=== PATIENT | female | born 1935 | race Two or more races ===

== ENCOUNTER → 2016-08-19 | Outpatient (CLI) | payer MEDICARE, OTHER | END | disposition home or self-care (01) | LOC: HKI 10:54 | PROVIDERS: ATTEND Orthopaedic Surgery | DX: M17.11 Unilateral primary osteoarthritis, right knee (principal) ==

== ENCOUNTER → 2016-09-21 | Outpatient (CLI) | payer MEDICARE, OTHER ==
--- NOTE | 2016-09-21 14:05 | RADRPT ---
PROCEDURE: XR leg length CLINICAL INDICATION: Right knee pain TECHNIQUE: Single AP image of the lower extremities. COMPARISON: Radiographs of the right knee dated January 27, 2016 FINDINGS: Single frontal image of the lower extremities from the iliac crest through the mid tibial shafts dem onstrates no acute fracture. There is severe medial femorotibial compartment osteoarthrosis on the right with mild genu varus and mild to moderate medial femorotibial compartment on the left. The soft tissues appear grossly unremarkable. There is apparent slight upward left pelvic tilt. IMPRESSION: 1. No radiographic evidence of acute osseous abnormality on this single image. 2. Severe right medial femorotibial compartment osteoarthrosis with slight genu varus. 3. Mild to moderate left medial femorotibial compartment osteoarthrosis. RPTAT: UU .Phuc Juarez MD, MD Date Time Electronically viewed and signed by .Phuc Juarez MD, on 09/21/2016 14:04 .K/
== END | disposition home or self-care (01) ==
LOC: HKI 09:16
PROVIDERS: ATTEND Orthopaedic Surgery
DX: Z01.818 Encounter for other preprocedural examination (principal); M17.11 Unilateral primary osteoarthritis, right knee; I10 Essential (primary) hypertension; E78.5 Hyperlipidemia, unspecified; Z88.2 Allergy status to sulfonamides
CPT/HCPCS: 77073; G0463

== ENCOUNTER 2016-09-27 06:44 | Inpatient (IN) | payer MEDICARE, OTHER ==
[2016-09-21 11:48] VITALS: BMI 30.4
[2016-09-27] VITALS (23 sets, daily range): BP systolic 84–144; BP diastolic 51–72; PULSE 75–88; RESP 12–23; Ht 154.9 cm; Wt 73.1 kg
[~2016-09-27] VITALS: Ht 154.9 cm; Wt 73.1 kg
[~2016-09-27 06:44] MED LIST: BUPIVACAINE LIPOSOME/PF 266 MG/20 ML VIAL INFIL ONE; CEFAZOLIN 2GM/50 ML (PMX) 50 ML X1 BEFORE INCISION IVPB ONE; LACTATED RINGER'S 1,000 ML IV SCH; MELOXICAM 15 MG TAB PO SCH; ONDANSETRON 4 MG IV X 1 DOSE IV ONE; PAIN COCKTAIL-CEFUROXIME IRR ONE; PREGABALIN 300 MG PO X1 PO ONE; SOD CHLORIDE 0.9% IV ONE; TRANEXAMIC ACID 730 MG in SOD CHLORIDE 0.9% 100 ML IVPB ONE; TRANEXAMIC ACID IV ONE; oxyCODONE (CR) 10 MG TAB [oxyCONTIN] X1 DOSE PO ONE; traMADOL 50 MG TAB X 1 DOSE PO ONE
[2016-09-27] MEDS ORDERED: ETOMIDATE 20 MG INJ ONE (07:00)
[2016-09-27] MEDS ORDERED: PREM625 PO (07:43)
[2016-09-27] MEDS ORDERED: CRES10 PO (07:44)
[2016-09-27] MEDS ORDERED: OMEG1CAP2 PO (07:44)
[2016-09-27] MEDS ORDERED: LOSA1TAB20 PO (07:45)
[2016-09-27] MEDS ORDERED: PARO20TA58 PO (07:46)
[2016-09-27] MEDS ORDERED: SACC250C PO (07:46)
[2016-09-27] MEDS ORDERED: MULTI PO (07:47)
[2016-09-27] MEDS ORDERED: ASPI81TA3 PO (07:55)
[2016-09-27] MEDS ORDERED: PROPOFOL 20 ML ONE (08:43)
[2016-09-27] MEDS ORDERED: ROCURONIUM 50 MG INJ ONE (08:43)
[2016-09-27] MEDS ORDERED: GLYCOPYRROLATE 0.4 MG INJ ONE (08:43)
[2016-09-27] MEDS ORDERED: CEFAZOLIN 1 GM INJ ONE (08:43)
[2016-09-27] MEDS ORDERED: NEOSTIGMINE 3 MG/3 ML SYRINGE ONE (08:43)
[2016-09-27] MEDS ORDERED: ONDANSETRON 4 MG INJ ONE (08:44)
[2016-09-27] MEDS ORDERED: DEXAMETHASONE 4 MG/ML 1 ML INJ ONE (08:44)
[2016-09-27] MEDS ORDERED: FENTAnyl 50 MCG/ML VIAL ONE (08:44)
[2016-09-27] MEDS ORDERED: MIDAZOLAM 1 MG/ML 2 ML INJ ONE (08:44)
[2016-09-27] MEDS ORDERED: SOD CHLORIDE 0.9% 250 ML IV* ONE (09:30)
--- NOTE | 2016-09-27 10:15 | HPN ---
Date/Time of Note Date/Time of Note DATE: 09/27/16 TIME: 10:15 Interval H&P Admission Note Pt. seen H&P reviewed: No system changes No changes from H&P on 09/19/16 by NICKOLAS Menchaca MD Sep 27, 2016 10:15
[2016-09-27] MEDS ORDERED: SODIUM CL BACTERIOSTATIC 30 ML INJ ONE (10:41)
[2016-09-27] MEDS ORDERED: POLYMYXIN B 500000 UNIT INJ ONE (10:41)
[2016-09-27] MEDS ORDERED: VANCOMYCIN 1 GM INJ ONE (10:41)
[2016-09-27] MEDS ORDERED: BACITRACIN 50000 UNITS INJ IRR ONE (12:05)
[2016-09-27] MEDS ORDERED: LABETALOL HCL 20MG INJ IV PRN (13:00)
[2016-09-27] MEDS ORDERED: MIDAZOLAM 1 MG/ML 2 ML INJ IV PRN (13:00)
[2016-09-27] MEDS ORDERED: ONDANSETRON 4 MG INJ IV PRN ×2 (13:00→13:30)
[2016-09-27] MEDS ORDERED: FENTAnyl 50 MCG/ML VIAL IV PRN ×3 (13:00)
[2016-09-27] MEDS ORDERED: EPHEDrine SULFATE 50 MG/5 ML SYG IV PRN (13:00)
[2016-09-27] MEDS ORDERED: EXPAREL NOTE (BUPIVICAINE LIPOSOMAL) XX SCH (13:00)
[2016-09-27] MEDS ORDERED: ALBUTEROL 0.083% (NEB) 2.5 MG/3 ML AMP HHN PRN (13:00)
[2016-09-27] MEDS ORDERED: IPRATROPIUM (NEB) 0.5 MG/2.5 ML AMP HHN PRN (13:00)
[2016-09-27] MEDS ORDERED: TRIMETHOBENZAMIDE 100 MG/ML VIAL IM PRN (13:00)
[2016-09-27] MEDS ORDERED: hydrALAzine 20 MG INJ IV PRN (13:00)
[2016-09-27] MEDS ORDERED: MEPERIDINE 25 MG INJ IV PRN (13:00)
[2016-09-27] MEDS ORDERED: DIPHENHYDRAMINE 50 MG INJ IV PRN (13:00)
[2016-09-27] MEDS ORDERED: HYDROmorphONE (0.2 MG/ML) 10ML SYG IV PRN ×3 (13:00)
[2016-09-27] MEDS ORDERED: OXYCODONE/ACETAMINOPHEN (5/325) TAB PO PRN ×2 (13:00)
[2016-09-27] MEDS ORDERED: SUGAMMADEX SODIUM 200 MG/2 ML VIAL IV ONE (13:11)
[2016-09-27] MEDS ORDERED: LACTATED RINGER'S 1,000 ML IV SCH (13:18)
--- NOTE | 2016-09-27 13:22 | OPR ---
Date/Time of Note Date/Time of Note DATE: 09/27/16 TIME: 13:17 Operative Report Procedure Description DATE: 09/27/2016 PREOPERATIVE DIAGNOSIS: Right knee osteoarthritis POSTOPERATIVE DIAGNOSIS: Right knee osteoarthritis OPERATION PERFORMED: Right total knee arthroplasty. SURGEON: Nickolas Roque MD PILOT CONTROL OPERATOR: Dennis Patton PA-C COMPONENTS USED: DePuy Attune size 5 narrow femoral component, size 4 tibial baseplate, 7 mm polyethylene insert, 35 patellar button ANESTHESIA: Spinal plus general endotracheal intubation, plus femoral nerve catheter. ANESTHESIOLOGIST: Yessenia Salinas TOURNIQUET TIME: 67 minutes. ESTIMATED BLOOD LOSS: 50 cc INTRAVENOUS FLUIDS: 2500 cc of crystalloid SPECIMENS: Bone and soft tissue. DRAINS: Hemovac x1. COMPLICATIONS: None. DISPOSITION: The patient tolerated the procedure well and was taken to the recovery room in stable condition. INDICATIONS: The patient is a 80-year-old woman who has developed severe osteoarthritis of her right knee. Despite nonsurgical means of treatment including activity modifications, pain medications, anti-inflammatory medications, and intra-articular injections she has had worsening pain and I feel she would benefit from a total knee arthroplasty. The risks, benefits, and alternatives of the procedure were explained in detail to the patient. I explained the risks of the surgery to include but not be limited to, bleeding and possible need for blood transfusion; infection; pain; stiffness; neurovascular injury with possible numbness, weakness, and/or paralysis anywhere from the knee down to the toes; fracture; instability; dislocation; wear and/or loosening of the prosthesis and possible need for future revision; blood clots; pulmonary embolism; and anesthetic complications such as heart attack, stroke, GI bleed, pneumonia, and/or . Ample time was allowed for the patient to ask questions, all of which were addressed and answered. The patient understood the risks involved and wished to proceed. Informed consent was signed prior to the procedure. PROCEDURE: The patient's right knee was initialed with a marking pen in the preoperative area to identify the correct operative site. The patient was brought to the operating room and transferred from the [facility] to the operating table where a spinal anesthetic was administered. The patient was then anesthetized and intubated. A Hightower catheter was placed. A timeout was performed to confirm that the right leg was the correct operative site. The patient was given 2 g of Ancef within one hour prior to the procedure. A tourniquet was placed on the operative proximal thigh. The operative knee and lower extremity were prepped and draped in the usual sterile fashion. The operative lower extremity was elevated and exsanguinated with an Esmarch tourniquet. The proximal thigh tourniquet was inflated to 300 mmHg. The knee was flexed. A midline incision was made and carried down through the subcutaneous tissue and fat with sharp dissection. Limited medial and lateral flaps were raised. A median parapatellar approach was performed. Synovial fluid was normal in color and consistency. The patella was everted and the knee flexed. There were severe tricompartmental osteoarthritic changes noted. A medial release was performed at the joint line to the midcoronal plane. The ACL and PCL and remnants of the menisci were excised. The stepped drill was used to open up the femoral canal which was irrigated and sucked dry. The intramedullary guide gregory was passed up the femur, and the distal cutting block was pinned into place for a 6 degree valgus cut, taking 10 mm of bone off distally. The oscillating saw was used to make the cut. The tibia was subluxed anteriorly. The tibial cutoff jig was placed over the center of the talus distally and over the junction of the medial and middle third of the tibial tubercle proximally. The guide was pinned into place and the oscillating saw was used to make the cut. The tibia was sized. The extension gap was checked and accommodated a 7 mm spacer block with the knee in full extension. There was no varus or valgus instability. At this point, the femur was sized with the posterior referencing guide. Two holes were drilled in 3 degrees of external rotation. The two holes were in line with the transepicondylar axis, perpendicular to Salyer's line, and in line with the tibial cutoff jig brought up with the knee flexed 90 degrees and tensed with 2 lamina spreaders, suggesting the femoral rotation was correct. The four-in-one cutting block was pinned into place. The anterior and posterior cuts and chamfer cuts were made with the oscillating saw. The flexion gap was checked and accommodated the 7 mm spacer block at 90 degrees. There was no varus or valgus instability, suggesting the flexion and extension gaps were now equal. The central box was cut out on the femur. The tibia was drilled and punched in proper rotation. Trial components were placed into position with a trial insert. The patella was cut down to 13 mm and sized. Three holes were drilled and the trial button placed in position. With all the trials now in place, the knee was taken through range of motion and came to full extension as evidenced by the fact that with the foot on my abdomen and axial loading, there was no tendency for the knee to flex. The knee was able to be flexed to 125 degrees with good patellar tracking with no lateral tilt or subluxation. At this point, I was satisfied with the overall range of motion, stability, and patellar tracking. The trials were removed. The real components were opened. Two bags of cement were mixed, one with and one without premixed antibiotic. The knee was irrigated with antibiotic saline and sucked dry. Once the cement was in a doughy stage, the real components were cemented into place. The knee was held in full extension, and the patellar component was held with a patellar clamp. All excess cement was removed with curettes. As the cement was hardening, the synovial/capsular layer was infiltrated with a mixture of 150 mg of 0.5% Bupivacaine, 8 mg of Duramorph, 300 mcg of epinephrine, 30 mg of Toradol, 100 mcg of clonidine, 750 mg of cefuroxime and 86 mL of normal saline, followed by an injection of 266 mg of liposomal Bupivacaine. A Hemovac drain was placed in the deep portion of the wound and brought out the anterolateral thigh. Once the cement was completely hardened, the trial liner was removed, and the real insert was opened. The tourniquet was let down, and there was good hemostasis. The knee was then irrigated with a mixture of betadine/saline and then antibiotic saline with pulsatile lavage. The real insert was impacted into the tibia and reduced onto to the femur. The arthrotomy was closed with a few interrupted #1 Ethibond in a figure-of- eight fashion, and then closed in a watertight fashion with a running #2 Stratafix suture. Knee flexion was checked against gravity and came to 125 degrees. The subcutaneous layer was irrigated and closed with 2-0 Statafix, and then 3-0 Vicryl and then denisa on the skin. The wound was covered with an occlusive dressing, and secured with cast padding and a bias dressing. The drain was secured with 3-0 nylon. The sponge and needle counts were correct at the end of the case. The patient was then awakened, extubated, and taken to the recovery room in stable condition. NICKOLAS ROQUE MD Sep 27, 2016 13:22
[2016-09-27] MEDS ORDERED: DIPHENHYDRAMINE 25 MG CAP PO PRN (13:30)
[2016-09-27] MEDS ORDERED: HYDROmorphONE 1 MG/ML SYG IV PRN (13:30)
[2016-09-27] MEDS ORDERED: NA PHOSPHATE/BIPHOS 133 ML ENEMA PR PRN (13:30)
[2016-09-27] MEDS ORDERED: BISACODYL 10 MG SUPP PR PRN (13:30)
[2016-09-27] MEDS ORDERED: NACL 0.9% 3 ML SYG IV SCH (13:30)
[2016-09-27] MEDS ORDERED: ASPIRIN (EC) 325 MG TAB PO ONE (13:30)
--- NOTE | 2016-09-27 13:55 | PN ---
Date/Time of Note Date/Time of Note DATE: 09/27/16 TIME: 13:53 Assessment/Plan Lines/Catheters IV Catheter Type (from Nrsg): Peripheral IV Assessment/Plan Assessment/Plan Stable, POD #1, s/p right TKA -continue Ancef -pain meds as needed -ASA/SCDs -OOB with PT -check AM labs -monitor drain -d/c strong in AM XR of the right knee is pending at this time Subjective 24 Hr Interval Summary Stable in PACU. Denies pain. Moving all extremities. Exam/Review of Systems Vital Signs Vitals Vital Signs Date Time Temp Pulse Resp B/P Pulse Ox O2 Delivery O2 Flow Rate FiO2 09/27/16 13:27 98.3 09/27/16 13:19 85 16 141/63 98 Nasal Cannula 2.0 Exam Free Text/Dictation Hemovac: minimal Dressing dry Incision clean, dry, and intact without redness or drainage Thigh soft 5/5 Quadriceps, Tibialis Anterior, EHL, Gastroc, Soleus, Peroneals Normal sensation Palpable DT/PT, CR <2 sec No distal edema SAVI PURDY PA-C Sep 27, 2016 13:55
[2016-09-27] MEDS: CEFAZOLIN 2 GM/50 ML (PMX) 50 ML IVPB SCH ×2 (13:56→20:57)
[2016-09-27 14:08] LABS: HEMATOCRIT 30.1 % (37.0-47.0); HEMOGLOBIN 10.3 g/dl (12.0-16.0)
[2016-09-27 14:31] LABS: CALCIUM 8.9 mg/dl (8.4-10.2); CREATININE 0.89 mg/dl (0.44-1.00); POTASSIUM 4.2 mmol/L (3.5-5.1)
--- NOTE | 2016-09-27 15:08 | RADRPT ---
PROCEDURE: XR Knee. CLINICAL INDICATION: Status post right knee replacement TECHNIQUE: AP and lateral view of the right knee were obtained. The images reviewed on a PACS wor kstation. COMPARISON: January 27, 2016 FINDINGS: Complete right knee replacement is identified. Prosthetic components are in appropriate position an d alignment. No fractures or destructive lesions are observed. Surgical drain is seen in the knee. Soft tissue air is procedural in nature. IMPRESSION: Status post right knee replacement. Prosthetic components are in appropriate position and alignment . RPTAT: AA .Miguel Frank MD, Date Time Electronically viewed and signed by .Miguel Frank MD, on 09/27/2016 15:08 .P/
[2016-09-27] MEDS ORDERED: TRANEXAMIC ACID 730 MG in SOD CHLORIDE 0.9% 100 ML IVPB ONE ×2 (16:30→19:30)
[2016-09-27] MEDS: PANTOPRAZOLE (EC) 40 MG TAB PO SCH (17:19)
[2016-09-27] MEDS: traMADol 50 MG TAB PO SCH ×2 (17:20→23:10)
[2016-09-27] MEDS: LACTATED RINGER'S 1,000 ML IV SCH (19:27)
[2016-09-27] MEDS: DOCUSATE SODIUM 100 MG CAP PO SCH (20:25)
[2016-09-27] MEDS: PREGABALIN 50 MG CAP PO SCH (20:26)
[2016-09-28] MEDS: LACTATED RINGER'S 1,000 ML IV SCH ×3 (00:28→18:00)
[2016-09-28 02:15] VITALS: BP 144/63; RESP 18
[2016-09-28] MEDS: traMADol 50 MG TAB PO SCH ×3 (05:19→18:00)
[2016-09-28] MEDS: CEFAZOLIN 2 GM/50 ML (PMX) 50 ML IVPB SCH (05:19)
[2016-09-28] MEDS: PANTOPRAZOLE (EC) 40 MG TAB PO SCH ×2 (05:19→18:35)
[2016-09-28 05:25] VITALS: BP 100/56; PULSE 76; RESP 17
[2016-09-28 05:34] LABS: HEMATOCRIT 27.4 % (37.0-47.0); HEMOGLOBIN 9.3 g/dl (12.0-16.0)
[2016-09-28 06:15] LABS: CALCIUM 8.8 mg/dl (8.4-10.2); CREATININE 0.94 mg/dl (0.44-1.00); POTASSIUM 4.2 mmol/L (3.5-5.1)
--- NOTE | 2016-09-28 06:22 | CONS ---
DATE OF ADMISSION: 09/27/2016 DATE OF CONSULTATION: 09/27/2016 Postop Medical Consultative Note Thank you very much, Dr. Boyer, for allowing me to evaluate the above patient following her right total knee replacement. HISTORICAL EVENTS: As you well know, this patient has had progressive, disabling pain involving her right knee and for this elected to proceed with surgical intervention. Postoperatively in recovery, she is comfortable without cough, wheezing, shortness of breath, nausea, vomiting, abdominal or chest pain. PAST MEDICAL HISTORY: 1. Melanoma involving the nose, status post resection 2005. 2. Total abdominal hysterectomy. 3. Lumbar laminectomy in July 2014. 4. Hypertension. 5. Hyperlipidemia. 6. GERD. 7. History of heart murmur. 8. Anemia, chronic. FAMILY HISTORY: Noncontributory. SOCIAL HISTORY: Does not smoke. Does not drink. ALLERGIES: TETRACYCLINE. LIPITOR. PLAVIX. SULFA. MEDICATION: 1. Premarin 0.625. 2. Florastor 250 b.i.d. 3. Paxil 40 mg 1-/2 per day. 4. Hyzaar 100/25 mg per day. 5. Aspirin 81 mg per day. 6. Crestor 10 mg per day. 7. Lovaza 1000 mg 2 times a day. PHYSICAL EXAMINATION: GENERAL APPEARANCE: [place] female in no acute distress. VITAL SIGNS: BP 120/80, pulse 70, respirations 20. She was afebrile. HEENT: Eyes, extraocular muscles were full. Nose, mouth, and throat were normal. NECK: Supple. There was no jugular venous distention, thyroid enlargement, or adenopathy. LUNGS: Clear. HEART: Rhythm regular. No murmur appreciated today. ABDOMEN: Nontender. Liver and spleen were not palpable. No mass or tenderness were noted. EXTREMITIES: No edema. Calves nontender. NEUROLOGIC: No lateralizing motor weakness. IMPRESSION: 1. Status post right total knee arthroplasty, stable. 2. History of hypertension. Will resume antihypertensive therapy. 3. Hyperlipidemia, to continue statin. 4. Anemia, to be monitored. 5. Will evaluate daily for signs and symptoms of thromboembolic disease despite appropriate deep vein thrombosis prophylaxis. Dictated By: Tyrone Black MD /guillermo/najma /Document#: [id number]
[2016-09-28 07:57] VITALS: BP 105/53; RESP 14
--- NOTE | 2016-09-28 08:21 | CONS ---
Date/Time of Note Date/Time of Note DATE: 09/28/16 TIME: 08:20 Assessment/Plan Assessment/Plan Additional Assessment/Plan 1. Doing well post op right knee replacement 2. HBP, controlled 3. Labs rev Consultation Date/Type/Reason Admit Date/Time Sep 27, 2016 at 06:44 Initial Consult Date Detailed Summary Respiratory: No cough, No shortness of breath Cardiovascular: No chest pain Gastrointestinal: no complaints Genitourinary: no complaints Musculoskeletal: bone/joint pain (mild right knee pain) Exam/Review of Systems Vital Signs Vitals Vital Signs Date Time Temp Pulse Resp B/P Pulse Ox O2 Delivery O2 Flow Rate FiO2 09/28/16 07:57 98.3 79 14 105/53 100 09/28/16 05:25 Nasal Cannula 2.0 Intake and Output 09/27/16 09/27/16 09/28/16 15:00 23:00 07:00 Intake Total 2707.3 ml 157.3 ml 2155 ml Output Total 625 ml 480 ml 570 ml Balance 2082.3 ml -322.7 ml 1585 ml Exam Neck: No jvd Respiratory: clear to auscultation Cardiovascular: regular rate and rhythm Gastrointestinal: soft Extremities: No edema (and no calf tend) Results Result Diagram: 09/28/16 0440 09/28/16 0440 Results 24 hrs Laboratory Tests Test 09/27/16 13:59 09/27/16 15:40 09/28/16 04:40 Hemoglobin 10.3 L 9.3 L Hematocrit 30.1 L 27.4 L Sodium Level 139 139 Potassium Level 4.2 4.2 Chloride Level 98 98 Carbon Dioxide Level 28 28 Anion Gap 17 H 17 H Blood Urea Nitrogen 17 17 Creatinine 0.89 0.94 Glucose Level 163 135 Calcium Level 8.9 8.8 Bedside Glucose 171 Medications Medications Current Medications Paroxetine HCl (Paxil) 60 mg DAILY PO ; Start 09/28/16 at 09:00 Losartan Potassium (Cozaar) 100 mg DAILY PO ; Start 09/28/16 at 09:00 Miscellaneous Information 10 mg QHS PO ; Start 09/27/16 at 21:00; Status UNV Tramadol HCl (Ultram) 50 mg Q6 PO Last administered on 09/28/16t 05:19; Admin Dose 50 MG; Start 09/27/16 at 18:00; Stop 09/30/16 at 17:59 Hydromorphone HCl (Dilaudid) 1 mg Q3H PRN IV PAIN LEVEL 8-10 Last administered on 09/28/16 03:19; Admin Dose 1 MG; Start 09/27/16 at 13:30 Ondansetron HCl (Zofran Inj) 4 mg Q6H PRN IV NAUSEA AND/OR VOMITING; Start 09/27 at 13:30 Bisacodyl (Dulcolax Supp) 10 mg Q12H PRN HI CONSTIPATION; Start 09/27/16 at 13: 30 Magnesium Hydroxide (Milk Of Mag) 30 ml BID PRN PO CONSTIPATION; Start 09/27/16 at 13:30 Sodium Biphosphate/ Sodium Phosphate (Fleet Enema) 133 ml DAILY PRN HI CONSTIPATION; Start 09/27/16 at 13:30 Docusate Sodium (Colace) 100 mg BID PO Last administered on 09/27/16 20:25; Admin Dose 100 MG; Start 09/27/16 at 21:00 Diphenhydramine HCl (Benadryl) 25 mg Q6H PRN PO PRURITUS; Start 09/27/16 at 13: 30 Acetaminophen/ Hydrocodone Bitart ([place] (7.5-325)) 1 tab Q4H PRN PO PAIN LEVEL 1-3; Start 09/27/16 at 13:30 Acetaminophen/ Hydrocodone Bitart ([place] (7.5-325)) 2 tab Q4H PRN PO PAIN LEVEL 4-7; Start 09/27/16 at 13:30 Aspirin (Ecotrin) 325 mg BID PO ; Start 09/28/16 at 09:00 Pantoprazole (Protonix Tab) 40 mg BID@06,18 PO Last administered on 09/28/16 05 :19; Admin Dose 40 MG; Start 09/27/16 at 18:00 Pregabalin (Lyrica) 50 mg BID PO Last administered on 09/27/16 20:26; Admin Dose 50 MG; Start 09/27/16 at 21:00 Hydrochlorothiazide 25 mg 25 mg DAILY PO ; Start 09/28/16 at 09:00 Lactated Ringer's (Lr) 1,000 ml @ 125 mls/hr Q8H IV Last administered on 00:28; Admin Dose 125 MLS/HR; Start 09/27/16 at 18:00 YIAR LEIGH MD Sep 28, 2016 08:21
--- NOTE | 2016-09-28 08:40 | PN ---
Date/Time of Note Date/Time of Note DATE: 09/28/16 TIME: 08:38 Assessment/Plan Lines/Catheters IV Catheter Type (from Nrsg): Peripheral IV Hightower in Place (from Nrsg): Yes Assessment/Plan Assessment/Plan Stable POD #1, s/p right TKA -d/c Ancef -pain meds as needed -ASA/SCDs -OOB with PT -drain removed -check AM labs -d/c planning. Will plan to go to [facility] upon discharge Subjective 24 Hr Interval Summary No acute overnight events. Having mild pain. Did not start PT yesterday. VSS, afebrile. Will plan to go to [facility] upon discharge. Exam/Review of Systems Vital Signs Vitals Vital Signs Date Time Temp Pulse Resp B/P Pulse Ox O2 Delivery O2 Flow Rate FiO2 09/28/16 07:57 98.3 79 14 105/53 100 09/28/16 05:25 Nasal Cannula 2.0 Intake and Output 09/27/16 09/27/16 09/28/16 15:00 23:00 07:00 Intake Total 2707.3 ml 157.3 ml 2155 ml Output Total 625 ml 480 ml 570 ml Balance 2082.3 ml -322.7 ml 1585 ml Exam Free Text/Dictation Hemovac: 195cc Dressing dry Incision clean, dry, and intact without redness or drainage Thigh soft 5/5 Quadriceps, Tibialis Anterior, EHL, Gastroc, Soleus, Peroneals Normal sensation Palpable DT/PT, CR <2 sec No distal edema Results Result Diagram: 09/28/1643909/28/16439 SAVI PURDY PA-C Sep 28, 2016 08:40
[2016-09-28] MEDS: HYDROCODONE/APAP (7.5/325) TAB PO PRN ×3 (08:41→22:26)
[2016-09-28] MEDS: DOCUSATE SODIUM 100 MG CAP PO SCH ×2 (08:41→21:04)
[2016-09-28] MEDS: PAROXETINE 20 MG TAB PO SCH (08:42)
[2016-09-28] MEDS: HYDROCHLOROTHIAZIDE 25 MG TAB PO SCH (08:42)
[2016-09-28] MEDS: ASPIRIN (EC) 325 MG TAB PO SCH ×2 (08:42→21:04)
[2016-09-28] MEDS: LOSARTAN 50 MG TAB PO SCH (08:42)
[2016-09-28] MEDS: PREGABALIN 50 MG CAP PO SCH ×2 (08:44→21:04)
[2016-09-28 10:51] LABS: ADD UMIC YES; UR ASCORBIC ACID NEGATIVE (NEGATIVE); UR BILIRUBIN (Dip) NEGATIVE (NEGATIVE); UR BLOOD (Dip) 3+ mg/dL (NEGATIVE); UR CLARITY SLIGHTLY CLOUDY (CLEAR); UR COLOR YELLOW (YELLOW); UR GLUCOSE (Dip) NEGATIVE (NEGATIVE); UR KETONES (Dip) NEGATIVE (NEGATIVE); UR LEUKOCYTE ESTERASE (Dip) 1+ Leu/ul (NEGATIVE); UR MUCUS FEW /HPF (NONE SEEN); UR NITRITE (Dip) NEGATIVE (NEGATIVE); UR RBC > 182 /HPF (0-5); UR SPECIFIC GRAVITY (Dip) 1.025 (1.003-1.030); UR TOTAL PROTEIN (Dip) 2+ mg/dl (NEGATIVE); UR UROBILINOGEN (Dip) NEGATIVE (NEGATIVE)
[2016-09-28 15:11] VITALS: BP 102/54; RESP 17
[2016-09-28 19:32] VITALS: BP 108/54; RESP 18
[2016-09-29] VITALS (7 sets, daily range): BP systolic 94–173; BP diastolic 45–104; PULSE 78–80; RESP 16–19
[2016-09-29] MEDS: LACTATED RINGER'S 1,000 ML IV SCH ×3 (02:00→18:00)
[2016-09-29] MEDS: HYDROCODONE/APAP (7.5/325) TAB PO PRN ×2 (02:49→18:34)
[2016-09-29 05:37] LABS: HEMATOCRIT 25.5 % (37.0-47.0); HEMOGLOBIN 8.7 g/dl (12.0-16.0)
[2016-09-29] MEDS: PANTOPRAZOLE (EC) 40 MG TAB PO SCH ×2 (05:59→18:33)
[2016-09-29] MEDS: traMADol 50 MG TAB PO SCH ×4 (05:59→18:33)
[2016-09-29 06:29] LABS: CALCIUM 8.6 mg/dl (8.4-10.2)
--- NOTE | 2016-09-29 06:43 | PDOCDIS ---
Discharge Instructions DIAGNOSIS Discharge Diagnosis s/p right TKA CONDITION Patient Condition: Good HOME CARE INSTRUCTIONS: Diet Instructions: Regular ACTIVITY: Activity Restrictions: Slowly Increase Activity Rest between Activity Avoid heavy lifting Do not operate Machinery Do not operate Power Tool Avoid Heavy Housework Keep Limb Elevated Bathing Restrictions: Shower FOLLOW UP/APPOINTMENTS Follow-up Plan follow up in the office on 10/07/16 OTHER ORDERS: Other Orders: S/P TKA Physical Therapy: Three times per week at home x 2 weeks Daily in Rehab/SNF WB STATUS: WBAT 1. Strengthening exercises for both upper and un-operated lower extremities. 2. Gait training with front wheeled walker 3. Active range of motion exercises to operative knee. 4. When not working on knee range of motion exercises, distal towel roll under operative ankle/distal calf to promote full extension. 5. DO NOT PUT ANYTHING BEHIND OPERATIVE KNEE!!! 6. Quadriceps and hamstring strengthening. 7. May switch to cane in contra lateral hand 6 weeks after surgery. 8. Physical Therapy can open case if nursing is not available. 9. Use Ice Machine as instructed from date of surgery while at rest 3X/day. 10. Patient requires mobile SCDs to reduce risk of developing DVT following TKA. Patient will use the mobile SCDs for 30 days postoperatively. Bathing assistance by home health aide twice weekly if Medicare patient. Occupational Therapy: Evaluation for assistive devices and ADL training. Wound Care: Keep incision dry & covered with Tegaderm until first visit with Dr. Boyer Anticoagulation Orders: Enteric Coated Aspirin 325 mg po bid x 6 weeks from date of surgery Follow-up:Call for an appointment with Dr. Boyer in 1 week after discharged from hospital at DME Orders: FWMaryanne, 3-in-1 Commode, Polar ice machine, Mobile SCDs SAVI PURDY PA-C Sep 29, 2016 06:43
[2016-09-29] MEDS ORDERED: PREG50CA PO (06:44)
[2016-09-29] MEDS ORDERED: PANT40TA4 PO (06:44)
[2016-09-29] MEDS ORDERED: ASPI325T32 PO (06:44)
[2016-09-29] MEDS ORDERED: HYDR-3605 PO (06:44)
[2016-09-29] MEDS ORDERED: TRAM50TA2 PO (06:44)
--- NOTE | 2016-09-29 07:43 | PN ---
Date/Time of Note Date/Time of Note DATE: 09/29/16 TIME: 07:41 Assessment/Plan Lines/Catheters IV Catheter Type (from Nrsg): Saline Lock Hightower in Place (from Nrsg): No Assessment/Plan Assessment/Plan Stable POD #2, s/p right TKA -pain meds as needed -ASA/SCDs -OOB with PT -dressing changed -check AM labs -plan to transfer to [facility] tomorrow Subjective 24 Hr Interval Summary No acute overnight events. Having mild pain. H&H low, but will hold off on transfusion for now. VSS, afebrile. Will plan to transfer to [facility] tomorrow Exam/Review of Systems Vital Signs Vitals Vital Signs Date Time Temp Pulse Resp B/P Pulse Ox O2 Delivery O2 Flow Rate FiO2 09/29/16 02:53 98.5 77 18 97/55 91 09/28/16 05:25 Nasal Cannula 2.0 Intake and Output 09/28/16 09/28/16 09/29/16 14:59 22:59 06:59 Intake Total 700 ml 720 ml Output Total 1500 ml Balance 700 ml -780 ml Exam Free Text/Dictation Dressing dry Incision clean, dry, and intact without redness or drainage Thigh soft 5/5 Quadriceps, Tibialis Anterior, EHL, Gastroc, Soleus, Peroneals Normal sensation Palpable DT/PT, CR <2 sec No distal edema Results Result Diagram: 09/29/16 0430 09/29/16 0439 SAVI PURDY PA-C Sep 29, 2016 07:43
[2016-09-29] MEDS: HYDROCHLOROTHIAZIDE 25 MG TAB PO SCH (09:00)
[2016-09-29] MEDS: LOSARTAN 50 MG TAB PO SCH (09:00)
--- NOTE | 2016-09-29 09:03 | CONS ---
Date/Time of Note Date/Time of Note DATE: 09/29/16 TIME: 08:58 Assessment/Plan Assessment/Plan Problems: (1) Anemia Comment: post op... w current issues, will Tx 1 u prbc today (2) Dyspnea Comment: anxiety related... PE now nl... nl O2 sats...STAT EKG w no acute changes... CXR ordered and pd (3) HTN (hypertension) Comment: good control (4) S/P knee replacement Comment: POD #2... no evidence to suggest acute PE... no evidence for DVT on exam Consultation Date/Type/Reason Admit Date/Time Sep 27, 2016 at 06:44 Initial Consult Date Type of Consultation: IM 24 HR Interval Summary Free Text/Dictation pt suddently got SOB earlier when finishing in the BR.. no cp or pleuritic pain... no hypotension... seems very anxious now... sats currently 98% w 2L... BP fine...during the interview/exam, sxs gradually abated Exam/Review of Systems Vital Signs Vitals Vital Signs Date Time Temp Pulse Resp B/P Pulse Ox O2 Delivery O2 Flow Rate FiO2 09/29/16 08:30 98.0 76 19 145/63 99 09/28/16 05:25 Nasal Cannula 2.0 Intake and Output 09/28/16 09/28/16 09/29/16 15:00 23:00 07:00 Intake Total 700 ml 720 ml Output Total 1500 ml Balance 700 ml -780 ml Exam Constitutional: alert, oriented Psych: anxiety Head: atraumatic, normocephalic Eyes: EOMI, PERRL, nl conjunctiva, nl sclera Neck: supple Respiratory: clear to auscultation Cardiovascular: regular rate and rhythm Gastrointestinal: soft Extremities: normal pulses (no calf pain... no edema) Results Result Diagram: 09/29/16 0430 09/29/16 0439 Results 24 hrs Laboratory Tests Test 09/29/16 04:30 09/29/16 04:39 Hemoglobin 8.7 L Hematocrit 25.5 L Sodium Level 137 Potassium Level 4.0 Chloride Level 98 Carbon Dioxide Level 31 Anion Gap 12 Blood Urea Nitrogen 21 H Creatinine 1.00 Glucose Level 115 Calcium Level 8.6 Medications Medications Current Medications Paroxetine HCl (Paxil) 60 mg DAILY PO Last administered on 09/28/16 08:42; Admin Dose 60 MG; Start 09/28/16 at 09:00 Losartan Potassium (Cozaar) 100 mg DAILY PO ; Start 09/28/16 at 09:00 Miscellaneous Information 10 mg QHS PO ; Start 09/27/16 at 21:00; Status UNV Tramadol HCl (Ultram) 50 mg Q6 PO Last administered on 09/29/16 05:59; Admin Dose 50 MG; Start 09/27/16 at 18:00; Stop 09/30/16 at 17:59 Hydromorphone HCl (Dilaudid) 1 mg Q3H PRN IV PAIN LEVEL 8-10 Last administered on 09/28/16 03:19; Admin Dose 1 MG; Start 09/27/16 at 13:30 Ondansetron HCl (Zofran Inj) 4 mg Q6H PRN IV NAUSEA AND/OR VOMITING; Start 09/27 at 13:30 Bisacodyl (Dulcolax Supp) 10 mg Q12H PRN [place] CONSTIPATION; Start 09/27/16 at 13: 30 Magnesium Hydroxide (Milk Of Mag) 30 ml BID PRN PO CONSTIPATION; Start 09/27/16 at 13:30 Sodium Biphosphate/ Sodium Phosphate (Fleet Enema) 133 ml DAILY PRN [place] CONSTIPATION; Start 09/27/16 at 13:30 Docusate Sodium (Colace) 100 mg BID PO Last administered on 09/28/16 21:04; Admin Dose 100 MG; Start 09/27/16 at 21:00 Diphenhydramine HCl (Benadryl) 25 mg Q6H PRN PO PRURITUS; Start 09/27/16 at 13: 30 Acetaminophen/ Hydrocodone Bitart ([place] (7.5-325)) 1 tab Q4H PRN PO PAIN LEVEL 1-3 Last administered on 09/28/16 08:41; Admin Dose 1 TAB; Start 09/27/16 at 13:30 Acetaminophen/ Hydrocodone Bitart ([place] (7.5-325)) 2 tab Q4H PRN PO PAIN LEVEL 4-7 Last administered on 09/29/16 02:49; Admin Dose 2 TAB; Start 09/27/16 at 13:30 Aspirin (Ecotrin) 325 mg BID PO Last administered on 09/28/16 21:04; Admin Dose 325 MG; Start 09/28/16 at 09:00 Pantoprazole (Protonix Tab) 40 mg BID@06,18 PO Last administered on 09/29/16 05 :59; Admin Dose 40 MG; Start 09/27/16 at 18:00 Pregabalin (Lyrica) 50 mg BID PO Last administered on 09/28/16 21:04; Admin Dose 50 MG; Start 09/27/16 at 21:00 Hydrochlorothiazide 25 mg 25 mg DAILY PO ; Start 09/28/16 at 09:00 Lactated Ringer's (Lr) 1,000 ml @ 125 mls/hr Q8H IV Last administered on 00:28; Admin Dose 125 MLS/HR; Start 09/27/16 at 18:00 DONNA SAWANT MD Sep 29, 2016 09:03
--- NOTE | 2016-09-29 09:39 | RADRPT ---
PROCEDURE: Chest radiograph. CLINICAL INDICATION: Shortness of breath. TECHNIQUE: Single portable frontal view. COMPARISON: None relevant listed. FINDINGS: The lungs are clear. No pleural effusion or focal parenchymal opacity. The cardiomediastinal silhouette is normal. No suspicious bone lesion. IMPRESSION: No acute cardiopulmonary abnormality. RPTAT: PP Physician Mindi Date Time Electronically viewed and signed by Sonya Lincoln Physician on 09/29/2016 09:38 LG/
[2016-09-29] MEDS: DOCUSATE SODIUM 100 MG CAP PO SCH ×2 (09:51→20:32)
[2016-09-29] MEDS: PREGABALIN 50 MG CAP PO SCH ×2 (09:51→20:31)
[2016-09-29] MEDS: ASPIRIN (EC) 325 MG TAB PO SCH ×2 (09:51→20:32)
[2016-09-29] MEDS: PAROXETINE 20 MG TAB PO SCH (09:51)
--- NOTE | 2016-09-29 14:31 | RADRPT ---
Vent Rate: 78 bpm RR Interval: 0 msec IA Interval: 170 msec QRS Duration: 84 msec QT Interval: 396 msec QTC Interval: 451 msec P-R-T Bertrand: 47 - -20 - 6 degrees Normal sinus rhythm Septal infarct , age undetermined Abnormal ECG Electronically Signed By: Ignacio Puente [id number]
[2016-09-29] MEDS: ROSUVASTATIN CALCIUM 40 MG TABLET PO SCH (20:31)
[2016-09-29] MEDS: MAGNESIUM HYDROXIDE 30ML CUP PO PRN (20:37)
[2016-09-30] MEDS: traMADol 50 MG TAB PO SCH ×3 (00:12→12:42)
[2016-09-30] MEDS: LACTATED RINGER'S 1,000 ML IV SCH ×3 (02:00→16:55)
[2016-09-30 02:05] VITALS: BP 117/59; RESP 18
[2016-09-30 05:48] LABS: HEMATOCRIT 28.8 % (37.0-47.0); HEMOGLOBIN 9.5 g/dl (12.0-16.0)
[2016-09-30] MEDS: PANTOPRAZOLE (EC) 40 MG TAB PO SCH ×2 (06:07→17:24)
[2016-09-30 06:12] LABS: CALCIUM 8.4 mg/dl (8.4-10.2); CREATININE 0.85 mg/dl (0.44-1.00); POTASSIUM 3.9 mmol/L (3.5-5.1)
[2016-09-30 07:32] VITALS: BP 128/60; RESP 20
[2016-09-30] MEDS: LOSARTAN 50 MG TAB PO SCH (08:15)
[2016-09-30] MEDS: DOCUSATE SODIUM 100 MG CAP PO SCH ×2 (08:15→20:47)
[2016-09-30] MEDS: PREGABALIN 50 MG CAP PO SCH ×2 (08:16→20:47)
[2016-09-30] MEDS: ASPIRIN (EC) 325 MG TAB PO SCH ×2 (08:16→20:47)
[2016-09-30] MEDS: HYDROCHLOROTHIAZIDE 25 MG TAB PO SCH (08:16)
[2016-09-30] MEDS: PAROXETINE 20 MG TAB PO SCH (08:16)
--- NOTE | 2016-09-30 08:39 | PN ---
Date/Time of Note Date/Time of Note DATE: 09/30/16 TIME: 08:37 Assessment/Plan Lines/Catheters IV Catheter Type (from Nrsg): Saline Lock Hightower in Place (from Nrsg): No Assessment/Plan Assessment/Plan POD #3, s/p right TKA -cipro 500mg BID for UA -pain meds as needed -ASA/SCDs -venous doppler RLE, r/o DVT -OOB with PT -dressing changed -check AM labs including cbc -encouraged incentive spirometry -hold discharge to [facility] until tomorrow Subjective 24 Hr Interval Summary Having increased pain today. Was given 1 unit of blood yesterday by head of art. One documented low grade fever. Denies f/c. H&H stable. Urine culture is negative but UA shows evidence of possible UTI. Reports h/o UTI. Bed available at [facility] but will hold discharge until tomorrow. Exam/Review of Systems Vital Signs Vitals Vital Signs Date Time Temp Pulse Resp B/P Pulse Ox O2 Delivery O2 Flow Rate FiO2 09/30/16 08:17 99.9 09/30/16 07:32 77 20 128/60 97 09/29/16 09:49 Nasal Cannula 2.0 Intake and Output 09/29/16 09/29/16 09/30/16 14:59 22:59 06:59 Intake Total 750 ml 482 ml Balance 750 ml 482 ml Exam Free Text/Dictation Dressing dry Incision clean, dry, and intact without redness or drainage Thigh soft 5/5 Quadriceps, Tibialis Anterior, EHL, Gastroc, Soleus, Peroneals Normal sensation Palpable DT/PT, CR <2 sec No distal edema Results Result Diagram: 09/30/16 0506 09/30/16 0506 SAVI PURDY PA-C Sep 30, 2016 08:39
[2016-09-30] MEDS: HYDROCODONE/APAP (7.5/325) TAB PO PRN ×2 (08:41→17:27)
--- NOTE | 2016-09-30 08:56 | RADRPT ---
PROCEDURE: Chest radiograph. CLINICAL INDICATION: Shortness of breath. TECHNIQUE: Single portable frontal view. COMPARISON: Radiograph from 09/29/2016. FINDINGS: Emphysema. The lungs are clear. No pleural effusion or focal parenchymal opacity. The cardiomediastinal silhouette is normal. No suspicious bone lesion. Subcortical cysts within the right humeral head, suggesting rotator cuff arthropathy. IMPRESSION: Emphysema without acute cardiopulmonary abnormality. Overall, no interval change. RPTAT: PP Physician Mindi Date Time Electronically viewed and signed by Physician Mindi on 09/30/2016 08:56 LG/
--- NOTE | 2016-09-30 10:34 | RADRPT ---
PROCEDURE: Ultrasound of the right lower extremity veins. CLINICAL INDICATION: Right lower extremity edema. TECHNIQUE: Multiple longitudinal and transverse images of the right lower extremity veins were obt ained with tee scale and color Doppler imaging. 2D grayscale measurements with compression, color Doppler flow, and augmentation was performed. The calf veins were interrogated as well. COMPARISON: No prior studies are available for comparison. FINDINGS: The right common femoral, superficial femoral and popliteal veins are normally compressible througho ut. Color flow demonstrates normal filling of the vessel. Normal waveforms are visualized and ther e is normal response to augmentation. The calf veins are visualized and are equally unremarkable. IMPRESSION: 1. No evidence of a deep vein thrombosis involving the right lower extremity. RPTAT: KK .Rigoberto Cunningham MD, MD Date Time Electronically viewed and signed by .Rigoberto Cunningham MD, MD on 09/30/2016 10:33 .B/
[2016-09-30] MEDS: CIPROFLOXACIN 500 MG TAB PO SCH ×2 (10:50→17:24)
--- NOTE | 2016-09-30 13:34 | CONS ---
Date/Time of Note Date/Time of Note DATE: 09/30/16 TIME: 13:31 Assessment/Plan Assessment/Plan Problems: (1) Anemia Comment: post op... s/p 1u PRBC yest,,,stable... recheck in am (2) Dyspnea Comment: resolved... CXR and EKG (-)... nl O2 sats on RA (3) HTN (hypertension) Comment: controlled on her meds (4) S/P knee replacement Comment: is POD #3 s/p Rt THR... to [facility] in am... urine cxs x 2 this admit are (-) Consultation Date/Type/Reason Admit Date/Time Sep 27, 2016 at 06:44 Type of Consultation: IM 24 HR Interval Summary Free Text/Dictation a bit anxious... but pain is less... CXR (-)...Duplex is (-)...Hct stable Exam/Review of Systems Vital Signs Vitals Vital Signs Date Time Temp Pulse Resp B/P Pulse Ox O2 Delivery O2 Flow Rate FiO2 09/30/16 08:17 99.9 09/30/16 07:32 77 20 128/60 97 09/29/16 09:49 Nasal Cannula 2.0 Intake and Output 09/29/16 09/29/16 09/30/16 15:00 23:00 07:00 Intake Total 750 ml 482 ml Balance 750 ml 482 ml Exam Constitutional: alert, oriented Head: normocephalic Eyes: nl conjunctiva Neck: supple Respiratory: clear to auscultation Cardiovascular: regular rate and rhythm Gastrointestinal: soft Results Result Diagram: 09/30/16 0506 09/30/16 0506 Results 24 hrs Laboratory Tests Test 09/30/16 05:06 09/30/16 08:00 Hemoglobin 9.5 L Hematocrit 28.8 L Sodium Level 140 Potassium Level 3.9 Chloride Level 99 Carbon Dioxide Level 30 Anion Gap 15 Blood Urea Nitrogen 16 Creatinine 0.85 Glucose Level 113 Calcium Level 8.4 Lab Scanned Report BLOOD TRANSFUSION Medications Medications Current Medications Paroxetine HCl (Paxil) 60 mg DAILY PO Last administered on 09/30/16 08:16; Admin Dose 60 MG; Start 09/28/16 at 09:00 Losartan Potassium (Cozaar) 100 mg DAILY PO Last administered on 09/30/16 08:15 ; Admin Dose 100 MG; Start 09/28/16 at 09:00 Rosuvastatin Calcium (Crestor) 10 mg QHS PO Last administered on 09/29/16 20:31 ; Admin Dose 10 MG; Start 09/29/16 at 21:00 Tramadol HCl (Ultram) 50 mg Q6 PO Last administered on 09/30/16 12:42; Admin Dose 50 MG; Start 09/27/16 at 18:00; Stop 09/30/16 at 17:59 Hydromorphone HCl (Dilaudid) 1 mg Q3H PRN IV PAIN LEVEL 8-10 Last administered on 09/28/16 03:19; Admin Dose 1 MG; Start 09/27/16 at 13:30 Ondansetron HCl (Zofran Inj) 4 mg Q6H PRN IV NAUSEA AND/OR VOMITING; Start 09/27 at 13:30 Bisacodyl (Dulcolax Supp) 10 mg Q12H PRN [place] CONSTIPATION; Start 09/27/16 at 13: 30 Magnesium Hydroxide (Milk Of Mag) 30 ml BID PRN PO CONSTIPATION Last administered on 09/29/16 20:37; Admin Dose 30 ML; Start 09/27/16 at 13:30 Sodium Biphosphate/ Sodium Phosphate (Fleet Enema) 133 ml DAILY PRN [place] CONSTIPATION; Start 09/27/16 at 13:30 Docusate Sodium (Colace) 100 mg BID PO Last administered on 09/30/16 08:15; Admin Dose 100 MG; Start 09/27/16 at 21:00 Diphenhydramine HCl (Benadryl) 25 mg Q6H PRN PO PRURITUS; Start 09/27/16 at 13: 30 Acetaminophen/ Hydrocodone Bitart ([place] (7.5-325)) 1 tab Q4H PRN PO PAIN LEVEL 1-3 Last administered on 09/30/16 08:41; Admin Dose 1 TAB; Start 09/27/16 at 13:30 Acetaminophen/ Hydrocodone Bitart ([place] (7.5-325)) 2 tab Q4H PRN PO PAIN LEVEL 4-7 Last administered on 09/29/16 18:34; Admin Dose 2 TAB; Start 09/27/16 at 13:30 Aspirin (Ecotrin) 325 mg BID PO Last administered on 09/30/16 08:16; Admin Dose 325 MG; Start 09/28/16 at 09:00 Pantoprazole (Protonix Tab) 40 mg BID@18 PO Last administered on 09/30/16 06 :07; Admin Dose 40 MG; Start 09/27/16 at 18:00 Pregabalin (Lyrica) 50 mg BID PO Last administered on 09/30/16 08:16; Admin Dose 50 MG; Start 09/27/16 at 21:00 Hydrochlorothiazide 25 mg 25 mg DAILY PO Last administered on 09/30/16 08:16; Admin Dose 25 MG; Start 09/28/16 at 09:00 Lactated Ringer's (Lr) 1,000 ml @ 125 mls/hr Q8H IV Last administered on 00:28; Admin Dose 125 MLS/HR; Start 09/27/16 at 18:00 Ciprofloxacin (Cipro) 500 mg BID@18 PO Last administered on 09/30/16 10:50; Admin Dose 500 MG; Start 09/30/16 at 09:00; Stop 10/07/16 at 08:59 DONNA SAWANT MD Sep 30, 2016 13:34
[2016-09-30 14:43] VITALS: BP 111/53; RESP 18
--- NOTE | 2016-09-30 15:05 | RADRPT ---
Vent Rate: 74 bpm RR Interval: 0 msec DE Interval: 180 msec QRS Duration: 86 msec QT Interval: 406 msec QTC Interval: 450 msec P-R-T [place]: 46 - -3 - 5 degrees Normal sinus rhythm Normal ECG Electronically Signed By: Ignacio Puente [id number]
[2016-09-30 19:40] VITALS: BP 106/55; RESP 20
[2016-09-30] MEDS: ROSUVASTATIN CALCIUM 40 MG TABLET PO SCH (20:47)
[2016-09-30] MEDS: MAGNESIUM HYDROXIDE 30ML CUP PO PRN (20:47)
[2016-10-01] MEDS: LACTATED RINGER'S 1,000 ML IV SCH ×2 (02:00→10:00)
[2016-10-01 02:10] VITALS: BP 119/56; RESP 18
[2016-10-01 05:39] LABS: BASOPHILS % 0.2 % (0.0-2.0); EOSINOPHILS # 0.2 10^3/ul (0.0-0.5); EOSINOPHILS % 2.4 % (0.0-7.0); HEMATOCRIT 27.4 % (37.0-47.0); HEMOGLOBIN 9.2 g/dl (12.0-16.0); LYMPHOCYTES # 0.9 10^3/ul (0.8-2.9); LYMPHOCYTES % 10.5 % (15.0-51.0); MEAN CORPUSCULAR HEMOGLOBIN 31.1 pg (29.0-33.0); MEAN CORPUSCULAR HGB CONC 33.6 g/dl (32.0-37.0); MEAN CORPUSCULAR VOLUME 92.6 fl (82.0-101.0); MEAN PLATELET VOLUME 9.8 fl (7.4-10.4); MONOCYTE # 0.9 10^3/ul (0.3-0.9); MONOCYTES % 9.6 % (0.0-11.0); NEUTROPHIL # 6.8 10^3/ul (1.6-7.5); NEUTROPHILS % 76.7 % (39.0-77.0); PLATELET COUNT 223 10^3/UL (140-415); RED BLOOD COUNT 2.96 10^6/ul (4.20-5.40); RED CELL DISTRIBUTION WIDTH 13.5 % (11.5-14.5); WHITE BLOOD COUNT 8.9 10^3/ul (4.8-10.8)
[2016-10-01] MEDS: PANTOPRAZOLE (EC) 40 MG TAB PO SCH (05:39)
[2016-10-01] MEDS: CIPROFLOXACIN 500 MG TAB PO SCH (05:39)
[2016-10-01 06:04] LABS: CALCIUM 8.5 mg/dl (8.4-10.2); CREATININE 0.94 mg/dl (0.44-1.00); POTASSIUM 4.2 mmol/L (3.5-5.1)
[2016-10-01 07:35] VITALS: BP 125/58; RESP 18
[2016-10-01] MEDS: HYDROCHLOROTHIAZIDE 25 MG TAB PO SCH (08:20)
[2016-10-01] MEDS: DOCUSATE SODIUM 100 MG CAP PO SCH (08:20)
[2016-10-01] MEDS: LOSARTAN 50 MG TAB PO SCH (08:20)
[2016-10-01] MEDS: PREGABALIN 50 MG CAP PO SCH (08:21)
[2016-10-01] MEDS: ASPIRIN (EC) 325 MG TAB PO SCH (08:21)
[2016-10-01] MEDS: PAROXETINE 20 MG TAB PO SCH (08:21)
--- NOTE | 2016-10-01 10:49 | CONS ---
Date/Time of Note Date/Time of Note DATE: 10/01/16 TIME: 10:47 Assessment/Plan Assessment/Plan Additional Assessment/Plan Post op knee stable course Hgb stable s/p 1 unit PRBC Urine cx negative x 2, can d/c Abx cont home meds discharge to [facility] today, medically clear for discharge Consultation Date/Type/Reason Admit Date/Time Sep 27, 2016 at 06:44 Initial Consult Date Type of Consultation: IM 24 HR Interval Summary Free Text/Dictation Dong well, pain improved. Urinating, eating, had a BM this AM. Afebrile. Exam/Review of Systems Vital Signs Vitals Vital Signs Date Time Temp Pulse Resp B/P Pulse Ox O2 Delivery O2 Flow Rate FiO2 10/01/16 07:35 97.9 70 18 125/58 97 09/29/16 09:49 Nasal Cannula 2.0 Intake and Output 09/30/16 09/30/16 10/01/16 15:00 23:00 07:00 Intake Total 480 ml Balance 480 ml Exam Respiratory: clear to auscultation, normal air movement Cardiovascular: nl pulses, regular rate and rhythm Results Result Diagram: 10/01/16 0436 10/01/16 0436 Results 24 hrs Laboratory Tests Test 10/01/16 04:36 White Blood Count 8.9 Red Blood Count 2.96 L Hemoglobin 9.2 L Hematocrit 27.4 L Mean Corpuscular Volume 92.6 Mean Corpuscular Hemoglobin 31.1 Mean Corpuscular Hemoglobin Concent 33.6 Red Cell Distribution Width 13.5 Platelet Count 223 Mean Platelet Volume 9.8 Neutrophils % 76.7 Lymphocytes % 10.5 L Monocytes % 9.6 Eosinophils % 2.4 Basophils % 0.2 Nucleated Red Blood Cells % 0.0 Neutrophils # 6.8 Lymphocytes # 0.9 Monocytes # 0.9 Eosinophils # 0.2 Basophils # 0.0 Nucleated Red Blood Cells # 0.0 Sodium Level 140 Potassium Level 4.2 Chloride Level 98 Carbon Dioxide Level 31 Anion Gap 15 Blood Urea Nitrogen 16 Creatinine 0.94 Glucose Level 123 Calcium Level 8.5 Medications Medications Current Medications Paroxetine HCl (Paxil) 60 mg DAILY PO Last administered on 10/01/16 08:21; Admin Dose 60 MG; Start 09/28/16 at 09:00 Losartan Potassium (Cozaar) 100 mg DAILY PO Last administered on 10/01/16 08:20 ; Admin Dose 100 MG; Start 09/28/16 at 09:00 Rosuvastatin Calcium (Crestor) 10 mg QHS PO Last administered on 09/30/16 20:47 ; Admin Dose 10 MG; Start 09/29/16 at 21:00 Hydromorphone HCl (Dilaudid) 1 mg Q3H PRN IV PAIN LEVEL 8-10 Last administered on 09/28/16 03:19; Admin Dose 1 MG; Start 09/27/16 at 13:30 Ondansetron HCl (Zofran Inj) 4 mg Q6H PRN IV NAUSEA AND/OR VOMITING; Start 09/27 at 13:30 Bisacodyl (Dulcolax Supp) 10 mg Q12H PRN [place] CONSTIPATION; Start 09/27/16 at 13: 30 Magnesium Hydroxide (Milk Of Mag) 30 ml BID PRN PO CONSTIPATION Last administered on 09/30/16 20:47; Admin Dose 30 ML; Start 09/27/16 at 13:30 Sodium Biphosphate/ Sodium Phosphate (Fleet Enema) 133 ml DAILY PRN [place] CONSTIPATION; Start 09/27/16 at 13:30 Docusate Sodium (Colace) 100 mg BID PO Last administered on 10/01/16 08:20; Admin Dose 100 MG; Start 09/27/16 at 21:00 Diphenhydramine HCl (Benadryl) 25 mg Q6H PRN PO PRURITUS; Start 09/27/16 at 13: 30 Acetaminophen/ Hydrocodone Bitart ([place] (7.5-325)) 1 tab Q4H PRN PO PAIN LEVEL 1-3 Last administered on 09/30/16 17:27; Admin Dose 1 TAB; Start 09/27/16 at 13:30 Acetaminophen/ Hydrocodone Bitart ([place] (7.5-325)) 2 tab Q4H PRN PO PAIN LEVEL 4-7 Last administered on 09/29/16 18:34; Admin Dose 2 TAB; Start 09/27/16 at 13:30 Aspirin (Ecotrin) 325 mg BID PO Last administered on 10/01/16 08:21; Admin Dose 325 MG; Start 09/28/16 at 09:00 Pantoprazole (Protonix Tab) 40 mg BID@18 PO Last administered on 10/01/16 05 :39; Admin Dose 40 MG; Start 09/27/16 at 18:00 Pregabalin (Lyrica) 50 mg BID PO Last administered on 10/01/16 08:21; Admin Dose 50 MG; Start 09/27/16 at 21:00 Hydrochlorothiazide 25 mg 25 mg DAILY PO Last administered on 10/01/16 08:20; Admin Dose 25 MG; Start 09/28/16 at 09:00 Lactated Ringer's (Lr) 1,000 ml @ 125 mls/hr Q8H IV Last administered on 00:28; Admin Dose 125 MLS/HR; Start 09/27/16 at 18:00 Ciprofloxacin (Cipro) 500 mg BID@06,18 PO Last administered on 10/01/16 05:39; Admin Dose 500 MG; Start 09/30/16 at 09:00; Stop 10/07/16 at 08:59 TRACE BURRELL MD Oct 01, 2016 10:49
--- NOTE | 2016-10-01 10:50 | PN ---
Date/Time of Note Date/Time of Note DATE: 10/01/16 TIME: 10:45 Assessment/Plan Lines/Catheters IV Catheter Type (from Nrsg): Saline Lock Hightower in Place (from Nrsg): No Assessment/Plan Assessment/Plan Stable POD #4, s/p right TKA -pain meds as needed -ASA/SCDs -OOB with PT -dressing changed -stable for transfer to [facility] today -follow up in the office on 10/07/16 Subjective 24 Hr Interval Summary No acute overnight events. Pain improved. Denies f/c. VSS, no fevers reported. Urine cultures neg x 2. Stable for transfer to [facility] today. Exam/Review of Systems Vital Signs Vitals Vital Signs Date Time Temp Pulse Resp B/P Pulse Ox O2 Delivery O2 Flow Rate FiO2 10/01/16 07:35 97.9 70 18 125/58 97 09/29/16 09:49 Nasal Cannula 2.0 Intake and Output 09/30/16 09/30/16 10/01/16 15:00 23:00 07:00 Intake Total 480 ml Balance 480 ml Exam Free Text/Dictation Mild blistering superiorly and posteriorly on leg Dressing dry Incision clean, dry, and intact without redness or drainage Thigh soft 5/5 Quadriceps, Tibialis Anterior, EHL, Gastroc, Soleus, Peroneals Normal sensation Palpable DT/PT, CR <2 sec No distal edema Results Result Diagram: 10/01/166 10/01/16435 SAVI PURDY PA-C Oct 01, 2016 10:50
--- NOTE | 2016-10-01 10:54 | DS ---
Date/Time of Note Date/Time of Note DATE: 10/01/16 TIME: 10:52 Discharge Summary Admission/Discharge Info Admit Date/Time Sep 27, 2016 at 06:44 Discharge Date/Time October 01, 2016 Discharge Diagnosis s/p right TKA Patient Condition: Good Procedures Right total knee arthroplasty Hospital Course This is a 72-year-old female, who was seen in the clinic complaining of right knee pain. She had undergone conservative modalities unsuccessfully, and it was thought she would benefit from right total knee arthroplasty. On 09/27/2016 the patient was admitted and taken to the operating room, where she underwent a right total knee arthroplasty. There were no intraoperative complications. The patient tolerated the procedure well. She was taken to recovery room in stable condition. Pain was well controlled oral pain medication. She was started on aspirin and SCDs for DVT prophylaxis. She remained more dynamically stable and neurovascularly intact throughout her hospital stay. She began physical therapy on postoperative day 1 and continues to make good progress. Ultimately she was deemed stable for transfer to [facility] on postoperative day 4. Prior to transfer, the incision was inspected and noted to be clean dry and intact. Dressing changes were done prior to patient going over to [facility]. DISCHARGE INSTRUCTIONS: The patient will be transferred to [facility] in stable condition. She is to resume a normal diet. She is weightbearing as tolerated on the right lower extremity. She will continue physical therapy at the nursing facility. She will be transferred with the medication noted below and is to resume all of her normal home medication. The patient is to call the office or go to emergency room for any concerns including increased redness, swelling, drainage, fever, or any concerns regarding the operation or site of incision. Home Meds Reported Medications Aspirin* (Aspirin* Chew) 81 Mg Tab.chew, 81 MG PO DAILY, TAB.CHEW 09/27/16 Multivitamins* (Theragran*) 1 Tab Tab, 1 TAB PO DAILY, TAB 09/27/16 Saccharomyces Boulardii* (Florastor*) 250 Mg Cap, 500 MG PO DAILY, CAP 09/27/16 Paroxetine Hcl* (Paxil*) 20 Mg Tablet, 60 MG PO DAILY, TAB 09/27/16 Losartan-Hydrochlorothiazide (Losartan-HCTZ) 100-25 Mg Tab, 1 TAB PO DAILY, TAB 09/27/16 Rosuvastatin Calcium* (Crestor*) 10 Mg Tablet, 10 MG PO QHS, #30 TAB 09/27/16 [place]-3 Acid Ethyl Esters (Lovaza) 1 Gm Capsule, 3 GM PO DAILY, CAP 09/27/16 Estrogens Conjugated* (Premarin*) 0.625 Mg Tab, 0.625 MG PO DAILY, TAB 09/27/16 Follow-up Plan Follow-up in the office on 10/07/2016 Primary Care Provider Winston Wei MD Time spent on discharge: < 30 minutes Pending Labs Laboratory Tests Test 10/01/16 04:36 White Blood Count 8.910^3/ul (4.8-10.8) Red Blood Count 2.9610^6/ul (4.20-5.40) Hemoglobin 9.2g/dl (12.0-16.0) Hematocrit 27.4% (37.0-47.0) Mean Corpuscular Volume 92.6fl (82.0-101.0) Mean Corpuscular Hemoglobin 31.1pg (29.0-33.0) Mean Corpuscular Hemoglobin Concent 33.6g/dl (32.0-37.0) Red Cell Distribution Width 13.5% (11.5-14.5) Platelet Count 28182^3/UL (140-415) Mean Platelet Volume 9.8fl (7.4-10.4) Neutrophils % 76.7% (39.0-77.0) Lymphocytes % 10.5% (15.0-51.0) Monocytes % 9.6% (0.0-11.0) Eosinophils % 2.4% (0.0-7.0) Basophils % 0.2% (0.0-2.0) Nucleated Red Blood Cells % 0.0/100WBC (0.0-0.0) Neutrophils # 6.810^3/ul (1.6-7.5) Lymphocytes # 0.910^3/ul (0.8-2.9) Monocytes # 0.910^3/ul (0.3-0.9) Eosinophils # 0.210^3/ul (0.0-0.5) Basophils # 0.010^3/ul (0.0-0.1) Nucleated Red Blood Cells # 0.010^3/ul (0.0-0.0) Sodium Level 140mmol/L (135-144) Potassium Level 4.2mmol/L (3.5-5.1) Chloride Level 98mmol/L (97-110) Carbon Dioxide Level 31mmol/L (21-31) Anion Gap 15 (8-16) Blood Urea Nitrogen 16mg/dl (7-20) Creatinine 0.94mg/dl (0.44-1.00) Glucose Level 123mg/dl (70-220) Calcium Level 8.5mg/dl (8.4-10.2) SAVI PURDY PA-C Oct 01, 2016 10:54
== END 2016-10-01 14:00 | DRG 470 ==
LOC: REC 06:44 → MS1 14:52
PROVIDERS: ADMIT Orthopaedic Surgery; ATTEND Orthopaedic Surgery
PROC: 0SRC0J9 Replacement of Right Knee Joint with Synthetic Substitute, Cemented, Open Approach (ICD-10-PCS; principal; 2016-09-27 10:00)
DX: M17.11 Unilateral primary osteoarthritis, right knee (principal); D64.9 Anemia, unspecified; I10 Essential (primary) hypertension; E78.5 Hyperlipidemia, unspecified; K21.9 Gastro-esophageal reflux disease without esophagitis; F41.9 Anxiety disorder, unspecified; Z90.710 Acquired absence of both cervix and uterus; Z85.820 Personal history of malignant melanoma of skin
CPT/HCPCS: 36430; 71010; 73560; 80048; 81001; 82962; 85014; 85018; 85025; 86850; 86900; 86901; 86920; 87081; 87086; 88304; 88311; 93005; 93971; 97110; 97116; 97163; 97166; 97530; C1776; C9290; J0171; J0690; J0697; J0735; J1100; J1170; J1885; J2250; J2274; J2405; J2710; J3010; J3370; J7050; J7120; P9016

== ENCOUNTER → 2016-10-07 | Outpatient (CLI) | payer MEDICARE, OTHER ==
[~2016-10-07] MED LIST changes: +ASPI325T32 PO; -BUPIVACAINE LIPOSOME/PF 266 MG/20 ML VIAL INFIL ONE; -CEFAZOLIN 2GM/50 ML (PMX) 50 ML X1 BEFORE INCISION IVPB ONE; +CRES10 PO; +HYDR-3605 PO; -LACTATED RINGER'S 1,000 ML IV SCH; +LOSA1TAB20 PO; -MELOXICAM 15 MG TAB PO SCH; +MULTI PO; +OMEG1CAP2 PO; -ONDANSETRON 4 MG IV X 1 DOSE IV ONE; -PAIN COCKTAIL-CEFUROXIME IRR ONE; +PANT40TA4 PO; +PARO20TA58 PO; +PREG50CA PO; -PREGABALIN 300 MG PO X1 PO ONE; +PREM625 PO; +SACC250C PO; -SOD CHLORIDE 0.9% IV ONE; +TRAM50TA2 PO; -TRANEXAMIC ACID 730 MG in SOD CHLORIDE 0.9% 100 ML IVPB ONE; -TRANEXAMIC ACID IV ONE; -oxyCODONE (CR) 10 MG TAB [oxyCONTIN] X1 DOSE PO ONE; -traMADOL 50 MG TAB X 1 DOSE PO ONE
--- NOTE | 2016-10-07 10:26 | PN ---
Date/Time of Note Date/Time of Note DATE: 10/07/16 TIME: 10:23 Assessment/Plan VTE Prophylaxis VTE Prophylaxis Intervention: ambulation, other Assessment/Plan Assessment/Plan ASSESSMENT: 10 days status post right total knee arthroplasty PLAN: The denisa were removed today and Steri-Strips were applied. She is to continue aspirin 325 mg twice daily for DVT prophylaxis. Additionally she is to continue physical therapy twice daily to work on strength and range of motion. I did encourage her to elevate her leg above the level of the heart as much as possible to decrease swelling. We will obtain a venous Doppler to rule out DVT of the right lower extremity at [facility]. We will see her back in 4 weeks for repeat evaluation. She is to call the office in the meantime if she has any concerns. Subjective 24 Hr Interval Summary Free Text/Dictation The patient presents today for her first postoperative evaluation on her right knee. She is now 10 days status post right total knee arthroplasty. She is doing well overall. She is currently at [facility]. She is progressing well with physical therapy and states she has been doing it twice daily. She does have some swelling of her right leg but denies any shortness of breath or other symptoms. Additionally she has been taking aspirin twice daily for DVT prophylaxis. She denies any fevers or chills. She presents today for her first postoperative evaluation. Exam/Review of Systems Exam On exam today, she is alert and oriented 4, and in no acute distress. She is ambulatory with a front wheel walker. Exam of the incision demonstrates it to be clean, dry, and intact. There is no erythema, warmth, pus, or drainage noted. Her motion is 0-100. Varus and valgus forces are stable. Compartments are soft. Homans sign is negative. She does have some mild soft tissue swelling of the right lower extremity. She is neurovascularly intact distally. IMAGING: X-rays of the right knee were done at [facility] and demonstrate the prosthesis to be in good anatomic alignment. There is no fractures or dislocations identified. SAVI PURDY PA-C Oct 07, 2016 10:26
== END | disposition home or self-care (01) ==
LOC: HKI 09:48
PROVIDERS: ATTEND Orthopaedic Surgery
DX: Z47.1 Aftercare following joint replacement surgery (principal); Z96.651 Presence of right artificial knee joint